=== PATIENT | male | born 1980 | race Caucasian/White ===

== ENCOUNTER 2025-05-08 16:41 | Emergency (ER) | payer BC ==
[2025-05-08] MEDS ORDERED: HYDROcodone/Acetaminophen 5/325 mg Tablet ONE (19:43)
[2025-05-08] MEDS ORDERED: Ketorolac Tromethamine 30 MG (1 mL) VIAL ONE (19:44)
== END 2025-05-08 20:55 | disposition home or self-care (01) ==
LOC: CSHERS 16:41
DX: S82.61XA Displaced fracture of lateral malleolus of right fibula, initial encounter for closed fracture (principal); S82.51XA Displaced fracture of medial malleolus of right tibia, initial encounter for closed fracture; X58.XXXA Exposure to other specified factors, initial encounter
CPT/HCPCS: 96372; 99283; J1885